=== PATIENT | female | born 1980 | race Caucasian/White ===

== ENCOUNTER 2017-04-02 14:57 | Emergency (ER) | payer BC, OTHER ==
[~2017-04-02] VITALS: Ht 160 cm; Wt 64.0 kg
[2017-04-02 14:58] VITALS: BP 145/100; PULSE 94; RESP 16; TEMP 98.4; O2SAT 100
[2017-04-02] MEDS ORDERED: predniSONE 20 MG TAB PO ONE (16:30)
[2017-04-02] MEDS ORDERED: [UNRECOGNIZED DRUG - CODE] TOPICAL (16:54)
[2017-04-02] MEDS ORDERED: DIPH25CA PO (16:54)
[2017-04-02] MEDS ORDERED: PRED50 PO (16:54)
--- NOTE | 2017-04-02 16:55 | PD ---
HPI Chief Complaint: Skin Problem Time Seen by Provider: 15:37 Travel History International Travel<30 days: No Contact w/Intl Traveler<30days: No Traveled to known affect area: No History of Present Illness HPI 36yo F with no PMH presents to the ED with c/o itchy rash on bilateral arms and legs as well as a small patch in left abdomen. Pt [place] and then noticed itchy rash that started in her arms 2 days later. Denies any fever, chest pain, sob, n/v, abdominal pain, focal weakness or numbness. Pt used calamine lotion on left arm. PFSH Past Medical History Medical History: Denies Significant Hx Diminished Hearing: No Immunizations Current: Yes Tetanus Vaccination: < 5 Years ?: Not LMP: 03/22/17 Ectopic : No Ovarian Cysts: No Tubal Ligation: No Past Surgical History Surgical History: No Previous Surgery Hysterectomy: No Social History Alcohol Use: Yes (SOCIALLY) Tobacco Use: No Substance Use: No Allergies-Medications (Allergen,Severity, Reaction): Coded Allergies: No Known Allergies (Verified , 04/02/17) Reported Meds & Prescriptions Reported Meds & Active Scripts Active No Active Prescriptions or Reported Medications Review of Systems Except as stated in HPI: all other systems reviewed are Neg Physical Exam Narrative GENERAL: 36yo F not in distress. SKIN: Multiple groups of clear papules that appears a bit vesicular in bilateral arms, left AC, bilateral legs and a small group in left abdomen where the left arm may have touched. HEAD: Atraumatic. Normocephalic. CARDIOVASCULAR: Regular rate and rhythm. No murmur appreciated. RESPIRATORY: No accessory muscle use. Clear to auscultation. Breath sounds equal bilaterally. GASTROINTESTINAL: Abdomen soft, non-tender, nondistended. Hepatic and splenic margins not palpable. MUSCULOSKELETAL: No obvious deformities. No clubbing. No cyanosis. No edema. NEUROLOGICAL: Awake and alert. No obvious cranial nerve deficits. Motor grossly within normal limits. Normal speech. PSYCHIATRIC: Appropriate mood and affect; insight and judgment normal. Data Data Last Documented VS Vital Signs Date Time Temp Pulse Resp B/P Pulse Ox O2 Delivery O2 Flow Rate FiO2 04/02/17 14:58 98.4 94 16 145/100 100 Orders Prednisone (Deltasone) (04/02/17 16:30) [facility] Medical Decision Making Medical Screen Exam Complete: Yes Emergency Medical Condition: Yes Differential Diagnosis Poison erickson dermatitis vs. atopic dermatitis Narrative Course 36yo nontoxic appearing with multiple groups of rash on extremities that appears like poison erickson dermatitis after [place]. It is itchy and not painful. No systemic symptoms. Pt is driving so will prescribe benadryl but not give it to her in the ED. Pt given prednisone 60mg PO. Encourage calamine lotion, benadryl as needed and a few days of oral prednisone. Diagnosis Primary Impression: Poison erickson dermatitis Patient Instructions: General Instructions Departure Forms: Tests/Procedures Additional Instructions: Please follow up with sports photographer in 3-7 days. Return to the ED if symptoms worsen. Med/Other Pt SpecificInfo: Prescription(s) given Scripts Diphenhydramine 25 Mg Cap25 Mg PO Q6H PRN (ALLERGIES) 5 Days Ref 0 Prov:Jessi Pfeiffer DO 04/02/17 Pramoxine-Calamine Topical (Calamine Medicated Topical)1-8 % Lotn1 Applic TOPICAL TID 5 Days Prov:Jessi Pfeiffer DO 04/02/17 Prednisone 50 Mg Tab50 Mg PO DAILY 5 Days Ref 0 Prov:Jessi Pfeiffer DO 04/02/17 Disposition: 01 DISCHARGE HOME Condition: Stable Jessi Pfeiffer DO Apr 02, 2017 16:55
== END 2017-04-02 17:02 | disposition home or self-care (01) ==
LOC: PHED 14:57
DX: L23.7 Allergic contact dermatitis due to plants, except food (principal); X58.XXXA Exposure to other specified factors, initial encounter; Y93.01 Activity, walking, marching and hiking; Y92.821 Forest as the place of occurrence of the external cause; Y99.8 Other external cause status
CPT/HCPCS: 99284; J7512